=== PATIENT | male | born 1970 | race African-American/Black ===

== ENCOUNTER 2016-10-03 18:33 | Emergency (ER) | payer SELFPAY ==
[~2016-10-03] VITALS: Ht 195.6 cm; Wt 190.5 kg
[~2016-10-03 18:33] MED LIST: NORCO 5/3251 TAB ORAL
[2016-10-03 19:03] VITALS: BP 147/101
[2016-10-03] MEDS ORDERED: Methocarbamol 750mg tab ORAL ONE (19:15)
[2016-10-03] MEDS ORDERED: Norco 10mg/325mg tab ORAL ONE (19:15)
[2016-10-03] MEDS ORDERED: NORCO 5-325 TA1 EAC1 ORAL (19:34)
[2016-10-03 19:44] VITALS: BP 147/101
--- NOTE | 2016-10-03 22:10 | Emergency Room Report ---
History of Present Illness General Chief Complaint: Lower Back Pain or Injury Source: Patient Present Illness HPI The patient is a 46-year-old male presenting for lower back pain and left knee pain. The patient states that he was moving furniture when he felt pain to these areas. He denies falling or hitting these areas. Pain is described as an 8/10 dull ache and does not radiate from these areas but worse with movement. He has not tried any medications yet. He denies any other symptoms Allergies: Coded Allergies: IBUPROFEN (Verified Allergy, Unknown, 10/03/16) Patient History Past Medical History: see triage record Pertinent Family History: none Reviewed Nursing Documentation: PMH: Agreed, PSxH: Agreed Nursing Documentation-PMH Past Medical History: No History, Except For Hx Hypertension: Yes Hx Diabetes: Yes Review of Systems All Other Systems: negative except mentioned in HPI Physical Exam Vital Signs Date Time Temp Pulse Resp B/P Pulse Ox O2 Delivery O2 Flow Rate FiO2 10/03/16 18:52 98.4 80 18 151/100 95 Room Air Sp02 EP Interpretation: reviewed, normal General Appearance: no apparent distress, alert, GCS 15, non-toxic Head: normocephalic, atraumatic Eyes: bilateral eye PERRL, bilateral eye normal inspection ENT: hearing grossly normal, normal pharynx, no angioedema, normal voice Neck: full range of motion, supple/symm/no masses Respiratory: chest non-tender, lungs clear, normal breath sounds, speaking full sentences Musculoskeletal: back normal, gait/station normal, normal range of motion, other - TTP over the L lateral knee, tender - lumbar paraspinal muscles Neurologic: alert, oriented x3, responsive, motor strength/tone normal, sensory intact, speech normal Psychiatric: judgement/insight normal, memory normal, mood/affect normal, no suicidal/homicidal ideation Skin: normal color, no rash, warm/dry, well hydrated Procedures Splinting Splinting : Consent: Verbal Location: L knee Pre-Made Type: MATTY wrap Pre-Proc Neuro Vasc Exam: normal Post-Proc Neuro Vasc Exam: normal Patient Tolerated: Well Complications: None Medical Decision Making PA Attestation Dr. Brasher is my supervising physician. Patient management was discussed with my supervising physician Diagnostic Impression: Primary Impression: Sprain of left knee Qualified Codes: S83.92XA - Sprain of unspecified site of left knee, initial encounter Additional Impression: Lumbar strain Qualified Codes: S39.012A - Strain of muscle, fascia and tendon of lower back , initial encounter ER Course The patient is a 46 yo M presenting for lower back and L knee pain Ddx considered include but not limited to lumbar strain, disc herniation, knee sprain, fracture, among others PE: NAD Lumbar paraspinal tenderness. No midline tenderness. No step-offs TTP over the L lateral knee. No laxity. No edema. MATTY wrap placed over the L knee He will be DC'ed home with pain medication and needs to FU with PMD. He was informed he may need MRI if pain continues or worsens. Last Vital Signs Date Time Temp Pulse Resp B/P Pulse Ox O2 Delivery O2 Flow Rate FiO2 10/03/16 19:03 98.3 82 17 147/101 96 Room Air Status: improved Disposition: HOME, SELF-CARE Condition: Improved Scripts Hydrocodone Bit/Acetaminophen 5-325* (NORCO 5-325 TABLET*) 1 Each Tablet 1 TAB ORAL Q6HR Y for For Pain, #10 TAB Prov: CECELIA ALLEN 10/03/16 Referrals: NON PHYSICIAN (PCP) Patient Instructions: Knee Pain, Back Pain, Adult Additional Instructions: I discussed my findings with the patient. All questions and concerns have been answered. Treatment and medication compliance have been addressed. I advised the patient that they need to follow up with PMD in 3-5 days. Return to ED if pain remains or worsens, numbness or tingling occurs, new rash is noticed, fever is noticed, or if needed for any reason. Patient verbalized understanding of discharge instructions. The patient was advised he may need MRI if pain continues or worsens CECELIA ALLEN Oct 03, 2016 22:10
== END 2016-10-03 19:44 | disposition home or self-care (01) ==
LOC: EMR 19:20
DX: S83.92XA Sprain of unspecified site of left knee, initial encounter (principal); S39.012A Strain of muscle, fascia and tendon of lower back, initial encounter; I10 Essential (primary) hypertension; E11.9 Type 2 diabetes mellitus without complications; Z88.6 Allergy status to analgesic agent; X50.0XXA Overexertion from strenuous movement or load, initial encounter; Y92.9 Unspecified place or not applicable
CPT/HCPCS: 99283

== ENCOUNTER 2017-04-02 08:14 | Emergency (ER) | payer BC ==
[~2017-04-02] VITALS: Ht 198.1 cm; Wt 158.8 kg
[~2017-04-02 08:14] MED LIST changes: +NORCO 5-325 TA1 EAC1 ORAL
[2017-04-02 08:34] VITALS: BP 131/87
[2017-04-02] MEDS ORDERED: Acetaminophen 500mg (ES) tab ORAL ONE (08:45)
[2017-04-02] MEDS ORDERED: LIDOCAINE700 M1 TP (09:51)
[2017-04-02] MEDS ORDERED: AMOXICILLIN500 MG ORAL (09:51)
[2017-04-02 10:05] VITALS: BP 131/87
--- NOTE | 2017-04-02 10:10 | Diagnostic Imaging Report ---
Indication: Pain Technique: XRAY Clavical Complete 2v L Comparison: None Findings: No clavicular fracture. Acromioclavicular and sternoclavicular joints appear within normal limits. The left shoulder joint appears within normal limits. Apparent increased pulmonary vascularity and cardiomegaly. These findings may be artifactual and can be further evaluated with dedicated imaging of the chest as clinically indicated. Impression: No acute fracture or dislocation
--- NOTE | 2017-04-02 10:17 | Emergency Room Report ---
History of Present Illness General Chief Complaint: Pain Source: Patient, Medical Record Present Illness HPI Patient is a 47-year-old male who presented for increased left shoulder pain. The patient reported having symptoms for several months. He reports having recent increase pain with movement. He denies recent trauma. He states that he been having increased pain to the middle portion of his collarbone. He denies any fever. He reports having increased cough for the past 3 weeks associated with some facial pain and intermittently productive cough. Allergies: Coded Allergies: IBUPROFEN (Verified Allergy, Unknown, 10/03/16) Patient History Past Medical History: see triage record Reviewed Nursing Documentation: PMH: Agreed, PSxH: Agreed Nursing Documentation-PMH Past Medical History: No History, Except For Hx Hypertension: Yes Hx Diabetes: Yes Review of Systems All Other Systems: negative except mentioned in HPI Physical Exam Vital Signs Date Time Temp Pulse Resp B/P (MAP) Pulse Ox O2 Delivery O2 Flow Rate FiO2 04/02/17 08:19 97.9 85 18 131/87 97 Room Air General Appearance: well appearing, no apparent distress, alert, GCS 15 Head: normocephalic, atraumatic ENT: hearing grossly normal, normal voice Neck: full range of motion, supple Respiratory: no respiratory distress, no accessory muscle use, speaking full sentences Cardiovascular #1: normal inspection, normal peripheral pulses, regular rate, rhythm Gastrointestinal: normal inspection, non tender, soft Musculoskeletal: normal inspection, no calf tenderness, decreased range of mation, other - tenderness over sternoclavicular joint Neurologic: normal gait Psychiatric: mood/affect normal Skin: no rash Medical Decision Making Diagnostic Impression: Primary Impression: Sinusitis Additional Impression: Sternoclavicular joint pain ER Course The patient presented for shoulder pain. Differential diagnoses included was not limited to fracture, dislocation, a.c. separation, septic joint.Because of complexity of patient's case imaging studies were ordered. Patient was given Tylenol for pain. The patient given prescription for antibiotics due to prolonged symptoms of sinus infection greater than 3 weeks. X-ray of the right shoulder three-view read by radiology showed no evidence of anterior dislocation, fracture or malalignment . The patient is advised followup with his primary care physician for further evaluation which may include bone scan or MRI. The patient was given a prescription for lidocaine patch. The patient is advised to follow up with primary care doctor in 1-2 days. Patient is advised to return if any worsening condition or if any changes in status that are concerning. This report is dictated with [employer] wooden shade hardware installer software which may occasionally lead to discrepancies related to use of this software. Last Vital Signs Date Time Temp Pulse Resp B/P (MAP) Pulse Ox O2 Delivery O2 Flow Rate FiO2 04/02/17 10:05 97.9 87 18 131/87 97 Room Air Status: improved Disposition: HOME, SELF-CARE Condition: Stable Scripts Amoxicillin* (AMOXIL*) 500 Mg Capsule 500 MG ORAL THREE TIMES A DAY, #42 CAP Prov: Benjamin Brasher 04/02/17 Lidocaine (Lidocaine) 1 Each Adh..patch 700 MG TP DAILY, #10 PATCH Prov: Benjamin Brasher 04/02/17 Patient Instructions: Shoulder Pain, Sinus Headache Benjamin Brasher Apr 02, 2017 10:17
--- NOTE | 2017-04-02 10:23 | Diagnostic Imaging Report ---
Indication: Pain Technique: XRAY Shoulder Compl L Comparison: None Findings: The humeral head seems to be seated well with the glenoid on frontal views. It appears slightly offset on transscapular Y-view however this may be artifactual related to suboptimal positioning given large body habitus. There is no acute fracture. No radiopaque foreign body seen. Impression: No evidence of acute fracture. Humeral head seated well in the glenoid on anterior views. Slight offset on the scapular Y view likely artifactual related to suboptimal positioning given large body habitus. If there is concern for dislocation, consider axillary view.
== END 2017-04-02 10:08 | disposition home or self-care (01) ==
LOC: EMR 09:00
DX: M25.512 Pain in left shoulder (principal); J32.9 Chronic sinusitis, unspecified; E11.9 Type 2 diabetes mellitus without complications; I10 Essential (primary) hypertension; Z88.6 Allergy status to analgesic agent
CPT/HCPCS: 99284